=== PATIENT | female | born 1965 | race Caucasian/White ===

== ENCOUNTER 2019-05-12 17:18 | Emergency (ER) | payer BC, OTHER ==
[~2019-05-12] VITALS: Ht 157.5 cm; Wt 190.0 kg
[~2019-05-12 17:18] MED LIST: ACET-704 PO; ACET325T9 PO; AZIT1PAC9 PO; CIPR500T94 PO; GUAI600T47 PO; LOSA1TAB22 PO; NAPR220T70 PO; OXYC5CAP PO
--- NOTE | 2019-05-12 17:54 | PHYS DOC ---
Past History Past Medical History: Hypertension, Other Additional Past Medical Histor: CROHN'S Past Surgical History: Colectomy, Hysterectomy, Tonsillectomy, Tubal ligation Smoking: Non-smoker Alcohol Use: None Drug Use: None Adult General Chief Complaint Chief Complaint: WRIST PAIN HPI HPI Patient is a 53 year old female who presents with left wrist pain s/p a fall that occurred 20 minutes prior to arrival. Patient states that she was at home and her dog jumped on her, which caused her to fall onto her outstretched hand. Patient reports to hearing a pop and having a sudden intense pain in her wrist. Patient denies LOC or head trauma. Patient denies being on blood thinners. Denies any dizziness at the time. She rates her pain at a 10/10 and states that it radiates up towards her elbow. Review of Systems Review of Systems Constitutional: Denies fever or chills Eyes: Denies redness or eye pain HENT: Denies nasal congestion or sore throat Respiratory: Denies cough or shortness of breath Cardiovascular: Denies chest pain or palpitations GI: Denies abdominal pain, nausea, or vomiting : Denies dysuria or hematuria Musculoskeletal: Denies back pain, reports left wrist pain Integument: Denies rash or skin lesions Neurologic: Denies headache, focal weakness or sensory changes Complete systems were reviewed and found to be within normal limits, except as documented in this note. Family History Family History No pertinent family history. Allergies Allergies Allergies Coded Allergies Type Severity Reaction Last Updated Verified aspirin Adverse Reaction Severe 02/19/15 Yes Physical Exam Physical Exam Constitutional: Well developed, well nourished, appears uncomfortable, tearful, non-toxic appearance HENT: Normocephalic, atraumatic, oropharynx moist Eyes: PERRL, EOMI, conjunctiva normal, no discharge Neck: Normal range of motion, no tenderness, supple Cardiovascular: Heart rate normal, regular rhythm Lungs & Thorax: Bilateral breath sounds clear to auscultation, no wheezing Abdomen: Soft, no tenderness; pelvis stable and nontender Skin: Warm, dry, no erythema, no rash Extremities: Tenderness to palpation of the left wrist with mild erythema/edema and restricted ROM, normal sensation of left hand, mild tenderness to palpation of left elbow with no restriction to range of motion Neurologic: Alert and oriented X 3, normal motor function, normal sensory function, no focal deficits noted Psychologic: Affect normal, judgment normal Current Patient Data Vital Signs Vital Signs Date Time Temp Pulse Resp B/P (MAP) Pulse Ox O2 Delivery O2 Flow Rate FiO2 05/12/19 17:18 97.5 92 16 165/90 (115) 98 Room Air Radiology/Procedures Radiology/Procedures PROCEDURE: WRIST 3V LEFT 3 views left wrist AP lateral oblique views HISTORY: Pain status post fall There is a mildly comminuted horizontal fracture through the distal radius with mild posterior displacement and posterior angulation. There is a distracted fracture through the ulnar styloid. There is a sclerotic lesion in the distal fifth metacarpal which appears to be a bone island. IMPRESSION: Acute traumatic fracture of the distal radius. Electronically signed by: Roldan Mancilla III, MD (05/12/2019 5:55 PM) [id number] Course & Med Decision Making Course & Med Decision Making Pertinent Imaging studies reviewed. (See chart for details) Patient is a 53 year old female who presents with left wrist pain s/p a fall onto her outstretched hand after her dog jumped on her 20 minutes prior to arrival. Patient reports to hearing a pop in the wrist and feeling an immediate intense pain. Patient denies any loss of consciousness or head trauma at the time of the event. Patient denies use of blood thinners. Patient denies any chest pain or dizziness. XR of the left wrist showed fracture through distal radius with mild posterior displacement and a distracted fracture through the ulnar styloid. Pain was addressed. Patient was placed in a sugar tong splint and sling. Patient stable for discharge with outpatient follow-up with orthopedics. Discussed findings and plan with patient and family, who acknowledge understanding and agreement. Dragon Disclaimer Dragon Disclaimer This electronic medical record was generated, in whole or in part, using a voice recognition dictation system. Splinting Splinting : Location: Left wrist Hand-Made Type: orthoglass Splint: sugar-tong Pre-Proc Neuro Vasc Exam: normal Post-Proc Neuro Vasc Exam: normal, unchanged from pre-exam Departure Departure: Impression: Primary Impression: Distal radius fracture, left Additional Impression: Fracture of ulnar styloid Disposition: HOME, SELF-CARE Condition: STABLE Referrals: PCP,NO (PCP) ROLDAN QUINONES MD Patient Instructions: Splint Care, [id number], Wrist Fracture, [id number] Scripts Hydrocodone Bit/Acetaminophen (NORCO 5-325 TABLET) 1 Each Tablet 0.5-1 TAB PO Q6HRS PRN for PAIN, #14 TAB Prov: MERYL GARG DO 05/12/19 Problem Qualifiers Primary Impression: Distal radius fracture, left Encounter type: initial encounter Fracture type: closed Fracture morphology: unspecified fracture morphology Qualified Codes: S52.502A - Unspecified fracture of the lower end of left radius, initial encounter for closed fracture Additional Impression: Fracture of ulnar styloid Encounter type: initial encounter Fracture type: closed Fracture alignment: nondisplaced Laterality: left Qualified Codes: S52.615A - Nondisplaced fracture of left ulna styloid process, initial encounter for closed fracture MERYL GARG DO May 12, 2019 17:54
--- NOTE | 2019-05-12 17:57 | RAD ---
3 views left wrist AP lateral oblique views HISTORY: Pain status post fall There is a mildly comminuted horizontal fracture through the distal radius with mild posterior displacement and posterior angulation. There is a distracted fracture through the ulnar styloid. There is a sclerotic lesion in the distal fifth metacarpal which appears to be a bone island. IMPRESSION: Acute traumatic fracture of the distal radius. Electronically signed by: Buster Mancilla III, MD (05/12/2019 5:55 PM) [id number]
[2019-05-12] MEDS ORDERED: HYDROcodone/APAP 5/325MG 1 TAB TABLET PO ONE (18:30)
[2019-05-12] MEDS ORDERED: HYDR-3165 PO (18:59)
[2019-05-12 19:05] VITALS: BP 150/92
== END 2019-05-12 19:18 | disposition home or self-care (01) ==
LOC: ER 17:18
DX: S52.502A Unspecified fracture of the lower end of left radius, initial encounter for closed fracture (principal); S52.615A Nondisplaced fracture of left ulna styloid process, initial encounter for closed fracture; I10 Essential (primary) hypertension; Z88.6 Allergy status to analgesic agent; W18.39XA Other fall on same level, initial encounter; Y93.89 Activity, other specified; Y92.098 Other place in other non-institutional residence as the place of occurrence of the external cause; Y99.8 Other external cause status
CPT/HCPCS: 29125; 73110; 96374; 99283; J3010

== ENCOUNTER 2019-05-12 22:33 | Emergency (ER) | payer SELFPAY ==
[2019-05-12 19:05] VITALS: BP 150/92
[~2019-05-12 22:33] MED LIST changes: +HYDR-3165 PO
[2019-05-12] MEDS ORDERED: HYDROcodone/APAP 5/325MG 1 TAB TABLET PO ONE (23:30)
--- NOTE | 2019-05-12 23:30 | PHYS DOC ---
Past History Past Medical History: Hypertension, Other Additional Past Medical Histor: CROHN'S Past Surgical History: Colectomy, Tonsillectomy, Tubal ligation Additional Past Surgical Histo: HYSTER Smoking: Non-smoker Alcohol Use: None Drug Use: None Adult General Chief Complaint Chief Complaint: Left hand numbness HPI HPI 53-year-old female presents for evaluation of left hand numbness status post splint placement earlier tonight in the emergency department for fall on outstretched hand with subsequent distal radius and ulnar styloid fracture. Patient reports she ate returned home and found significant numbness to fingertips and discoloration concerning for lack of blood supply. Patient reports symptoms had improved upon arrival to the ER. Denies further trauma. Reports she has maintained left wrist splint as well as shoulder sling for comfort. Review of Systems Review of Systems Musculoskeletal: Reports left wrist pain with history of wrist fracture Neurologic: Reports left hand numbness in this portion Complete systems were reviewed and found to be within normal limits, except as documented in this note. Current Medications Current Medications Current Medications Medications (Trade) Dose Ordered Sig/Kaia Start Time Stop Time Status Last Admin Dose Admin Acetaminophen/ Hydrocodone Bitart (Lortab 5/325) 1 tab 1X ONCE 05/12/19 23:30 05/12/19 23:31 Allergies Allergies Allergies Coded Allergies Type Severity Reaction Last Updated Verified aspirin Adverse Reaction Severe 02/19/15 Yes Physical Exam Physical Exam Constitutional: Well developed, well nourished, no acute distress, non-toxic appearance HENT: Normocephalic, atraumatic, oropharynx moist Eyes: Conjunctiva normal, no discharge Neck: Normal range of motion, no tenderness, supple Cardiovascular: Left fingertip CR < 2 sec Lungs & Thorax: No respiratory distress Skin: Warm, dry, no erythema, no rash Extremities: Left forearm maintained in sugar tong splint, splint GIULIA wrap taken down and reapplied Neurologic: Alert and oriented X 3, no focal deficits noted Psychologic: Affect normal, judgment normal EKG EKG [] Radiology/Procedures Radiology/Procedures [] Course & Med Decision Making Course & Med Decision Making Pertinent Imaging studies reviewed. (See chart for details) Patient presents with left hand numbness with history of recent fall on out stretched hand and subsequent distal radius fracture and ulnar styloid fracture. Splint had been applied in the ER earlier in the night. Patient had reported some notice upon getting home. Upon initial examination Refill less than 2 seconds. Patient reports interval resolution of symptoms. Splint taken down and giulia wraps reapplied. Cap refill less than 2 seconds and sensation fully intact. Repeat x-ray of forearm notes continuation of previously seen mildly displaced distal radial fracture. Patient advised to continue to elevate arm and maintain in splint as needed for comfort. Pain addressed. Patient stable for discharge with outpatient follow-up with PCP/orthopedics. Orthopedic referral provided.. Discussed findings and plan with patient, who acknowledges understanding and agreement. Dragon Disclaimer Dragon Disclaimer This electronic medical record was generated, in whole or in part, using a voice recognition dictation system. Splinting Splinting : Location: Left wrist Hand-Made Type: orthoglass Splint: sugar-tong Pre-Proc Neuro Vasc Exam: normal Post-Proc Neuro Vasc Exam: normal, unchanged from pre-exam Progress Sugar tong splint applied earlier maintained. GIULIA bandages taken down and reapplied with interval improvement. Departure Departure: Impression: Primary Impression: Aftercare for cast or splint check or change Additional Impression: Hx of fracture of wrist Disposition: 01 HOME, SELF-CARE Condition: STABLE Referrals: BALA ANNE MD (PCP) ROLDAN QUINONES MD Patient Instructions: Cast or Splint Care Problem Qualifiers MERYL GARG DO May 12, 2019 23:30
--- NOTE | 2019-05-13 02:41 | RAD ---
FOREARM LEFT History: Fracture. Splint. Technique: 2 views left forearm. Comparison: May 12, 2019 Findings: Interval splinting. Comminuted intra-articular distal left radial fracture with dorsal angulation, similar compared to prior. Displaced ulnar styloid fracture, unchanged alignment. Sclerotic lesion within the fifth metacarpal head, unchanged. Impression: 1. Unchanged comminuted intra-articular distal radial fracture with dorsal angulation. 2. Displaced ulnar styloid fracture, unchanged. Electronically signed by: Ruslan Washburn DO (05/13/2019 2:38 AM) [id number]
== END 2019-05-12 23:35 | disposition home or self-care (01) ==
LOC: ER 22:33
DX: Z47.89 Encounter for other orthopedic aftercare (principal); I10 Essential (primary) hypertension; Z87.81 Personal history of (healed) traumatic fracture; Z88.6 Allergy status to analgesic agent
CPT/HCPCS: 29125; 73090; 99283

== ENCOUNTER 2020-05-12 08:11 | Emergency (ER) | payer BC ==
[~2020-05-12] VITALS: Ht 160 cm; Wt 103.0 kg
--- NOTE | 2020-05-12 08:47 | RAD ---
Three-view right knee HISTORY: Pain AP lateral oblique views There is a moderate dense effusion on the lateral view. The visualized osseous structures appear teto sly intact. There is minimal degenerative marginal spurring of the medial compartment. IMPRESSION: Large hemarthrosis. No fracture seen. Consider possible ACL tear versus occult tibial plateau fractur e. Electronically signed by: Buster Mancilla III, MD (05/12/2020 8:44 AM) [id number]
[2020-05-12] MEDS ORDERED: HYDROcodone/APAP 5/325MG 1 TAB TABLET ONE (08:55)
[2020-05-12] MEDS ORDERED: HYDR-2155 PO (09:00)
[2020-05-12] MEDS ORDERED: HYDROcodone/APAP 5/325MG 1 TAB TABLET PO ONE (09:00)
--- NOTE | 2020-05-12 09:00 | PHYS DOC ---
Past History Past Medical History: Hypertension, Other Additional Past Medical Histor: CHRONS Past Surgical History: Hysterectomy, Tonsillectomy, Other Additional Past Surgical Histo: CHRONS REDUCTION Smoking: Non-smoker Alcohol Use: None Drug Use: None General Adult EDM: Chief Complaint: KNEE INJURY HPI: HPI: Patient is a 54-year-old female coming in for right knee pain and swelling. Prior to arrival she was walking out the freezer down a metal ramp when she slipped and landed on her right knee, mostly on the lateral aspect.. Denies any other injuries, loss consciousness, head injuries or syncope. Patient denies any prior history of right knee problems. States she otherwise has been well without recent illness other than finishing up a prescription of steroids and antibiotics for sinus infection. Has not been able to bear weight on right lower extremity since fall. Denies any paresthesias or numbness distal to the injury. Review of Systems: Review of Systems: All other systems within normal limits except for as noted in the HPI Allergies: Allergies: Allergies Coded Allergies Type Severity Reaction Last Updated Verified aspirin Adverse Reaction Severe 02/19/15 Yes Physical Exam: PE: Constitutional: Well developed, well nourished, no acute distress, non-toxic appearance. [] HENT: Normocephalic, atraumatic, bilateral external ears normal, nose normal. [] Eyes: PERRLA, conjunctiva normal, no discharge. [] Neck: No rigidity, supple, no stridor. [] Cardiovascular: Regular rate and rhythm, brisk cap refill [] Lungs & Thorax: Non labored symmetric respirations, no tachypnea or respiratory distress [] Abdomen: Soft, nondistended. Skin: Warm, dry, no erythema, no rash. [] Back: Unremarkable Extremities: No deformities, range of motion grossly intact, no lower extremity edema. Right lower extremity. Moderate to large size right knee effusion. No varus or valgus laxity. No posterior laxity, possible anterior laxity but exam limited to patient's cooperation secondary to pain. No tenderness or swelling distal to knee [] Neurologic: Alert and oriented X 3, no focal deficits noted. [] Psychologic: Affect normal, judgement normal, mood normal. [] Current Patient Data: Vital Signs: Vital Signs Date Time Temp Pulse Resp B/P (MAP) Pulse Ox O2 Delivery O2 Flow Rate FiO2 05/12/20 08:17 98.0 79 18 172/110 (130) Room Air EKG: EKG: [] Radiology/Procedures: Radiology/Procedures: Three-view right knee HISTORY: Pain AP lateral oblique views There is a moderate dense effusion on the lateral view. The visualized osseous structures appear grossly intact. There is minimal degenerative marginal spurring of the medial compartment. IMPRESSION: Large hemarthrosis. No fracture seen. Consider possible ACL tear versus occult tibial plateau fracture. [] Heart Score: Risk Factors: Risk Factors: DM, Current or recent (<one month) smoker, HTN, HLP, family history of CAD, obesity. Risk Scores: Score 0 - 3: 2.5% MACE over next 6 weeks - Discharge Home Score 4 - 6: 20.3% MACE over next 6 weeks - Admit for Clinical Observation Score 7 - 10: 72.7% MACE over next 6 weeks - Early Invasive Strategies Course & Med Decision Making: Course & Med Decision Making Placed in knee immobilizer and instructed to follow-up with orthopedics. Discussed likely ligamentous injury. Patient does not have pain over tibial plateau, mostly on distal femur, proximal to injury. Dragon Disclaimer: [employer]enueAgent Disclaimer: This electronic medical record was generated, in whole or in part, using a voice recognition dictation system. Departure Departure: Impression: Primary Impression: Right knee injury Disposition: 01 DC HOME SELF CARE/HOMELESS Condition: STABLE Referrals: BALA ANNE MD (PCP) [facility] Patient Instructions: RICE - Routine Care for Injuries Scripts Hydrocodone Bit/Acetaminophen (HYDROCODONE-APAP 5-325 ) 1 Each Tablet 1 TAB PO PRN Q6HRS PRN for PAIN for 5 Days, #15 TAB 0 Refills Caution: this medication can make you drowsy. Do not drive or operate heavy machinery when using this medication. Prov: CARLA GARZA MD 05/12/20 CARLA GARZA MD May 12, 2020 09:00
[2020-05-12 09:08] VITALS: BP 189/122
== END 2020-05-12 09:12 | disposition home or self-care (01) ==
LOC: ER 08:11
DX: M25.561 Pain in right knee (principal); M25.461 Effusion, right knee; I10 Essential (primary) hypertension; Z88.6 Allergy status to analgesic agent
CPT/HCPCS: 29505; 73562; 99284